=== PATIENT | female | born 1945 | race Caucasian/White ===

== ENCOUNTER 2020-04-22 13:38 | Inpatient (IN) | payer MEDICARE, OTHER ==
[~2020-04-22] VITALS: Ht 160 cm; Wt 61.2 kg
--- NOTE | 2020-04-22 14:28 | PHYS DOC ---
General Adult EDM: Chief Complaint: FEVER HPI: HPI: History obtained from patient. Patient is a 74-year-old female with history of multiple sclerosis who presents with a chief complaint of nausea, fever, general fatigue. Patient states she is not felt well beginning this morning. Patient states has a history of MS but does not take chronic steroids. He notes a few episodes of nonbloody nonbilious emesis. she states home health does check on her daily. She states that she does not ambulate at baseline. She states she has little to no movement in her legs but does have upper extremity movement. Denies any ulcerative wounds. Does note some mild diffuse abdominal discomfort. Denies chest pain or shortness of breath. Unsure when she last took Tylenol. History is somewhat limited patient secondary to the patient's confusion. Review of Systems: Review of Systems: Constitutional: Positive for fevers Eyes: Denies change in visual acuity HENT: Denies nasal congestion or sore throat Respiratory: Denies cough or shortness of breath Cardiovascular: Denies chest pain or edema GI: Positive for vomiting : Denies dysuria Musculoskeletal: Denies back pain or joint pain Integument: Denies rash Neurologic: Denies headache, focal weakness or sensory changes Endocrine: Denies polyuria or polydipsia Lymphatic: Denies swollen glands Psychiatric: Denies depression or anxiety Heart Score: Risk Factors: Risk Factors: DM, Current or recent (<one month) smoker, HTN, HLP, family history of CAD, obesity. Risk Scores: Score 0 - 3: 2.5% MACE over next 6 weeks - Discharge Home Score 4 - 6: 20.3% MACE over next 6 weeks - Admit for Clinical Observation Score 7 - 10: 72.7% MACE over next 6 weeks - Early Invasive Strategies Allergies: Allergies: Allergies Coded Allergies Type Severity Reaction Last Updated Verified No Known Drug Allergies 04/22/20 No Physical Exam: PE: Constitutional: Well developed, well nourished, no acute distress, non-toxic a ppearance. [] HENT: Normocephalic, atraumatic, bilateral external ears normal, oropharynx moist, no oral exudates, nose normal. [] Eyes: PERRLA, EOMI, conjunctiva normal, no discharge. [] Neck: Normal range of motion, no tenderness, supple, no stridor. [] Cardiovascular: Tachycardic, rhythm, no murmur [] Lungs & Thorax: Bilateral breath sounds clear to auscultation [] Abdomen: soft, no tenderness, no masses, no pulsatile masses. [] Skin: Warm, dry, no erythema, no rash. [] Back: No tenderness, no CVA tenderness. No sacral decubitus ulcers visualized. [] Extremities: +2-5 muscle strength in lower extremities bilaterally. +4-5 muscle strength in the upper extremities bilaterally. Neurologic: Alert and oriented X 3, normal motor function, normal sensory function, no focal deficits noted. [] Psychologic: Affect normal, judgement normal, mood normal. [] Current Patient Data: Labs: Laboratory Tests Test 04/22/20 14:00 White Blood Count 9.1 x10^3/uL Red Blood Count 4.56 x10^6/uL Hemoglobin 13.2 g/dL Hematocrit 40.6 % Mean Corpuscular Volume 89 fL Mean Corpuscular Hemoglobin 29 pg Mean Corpuscular Hemoglobin Concent 33 g/dL Red Cell Distribution Width 15.9 % Platelet Count 190 x10^3/uL Neutrophils (%) (Auto) 94 % Lymphocytes (%) (Auto) 2 % Monocytes (%) (Auto) 3 % Eosinophils (%) (Auto) 0 % Basophils (%) (Auto) 0 % Neutrophils # (Auto) 8.6 x10^3uL Lymphocytes # (Auto) 0.2 x10^3/uL Monocytes # (Auto) 0.3 x10^3/uL Eosinophils # (Auto) 0.0 x10^3/uL Basophils # (Auto) 0.0 x10^3/uL Urine Collection Type U cath Urine Color Yellow Urine Clarity Hazy Urine pH 6.0 Urine Specific [place] 1.020 Urine Protein Trace Urine Glucose (UA) Neg mg/dL Urine Ketones (Stick) Neg mg/dL Urine Blood Mod Urine Nitrite Pos Urine Bilirubin Neg Urine Urobilinogen Dipstick 0.2 mg/dL Urine Leukocyte Esterase Small Urine RBC 3-5 /HPF Urine WBC 11-20 /HPF Urine Squamous Epithelial Cells Few /LPF Urine Bacteria Many /HPF Sodium Level 138 mmol/L Potassium Level 3.8 mmol/L Chloride Level 102 mmol/L Carbon Dioxide Level 24 mmol/L Anion Gap 12 Blood Urea Nitrogen 24 mg/dL Creatinine 1.0 mg/dL Estimated GFR (Cockcroft-Gault) 54.5 BUN/Creatinine Ratio 24 Glucose Level 173 mg/dL Lactic Acid Level 2.9 mmol/L Calcium Level 9.6 mg/dL Magnesium Level 1.8 mg/dL Total Bilirubin 0.9 mg/dL Aspartate Amino Transf (AST/SGOT) 19 U/L Alanine Aminotransferase (ALT/SGPT) 23 U/L Alkaline Phosphatase 100 U/L Creatine Kinase 59 U/L Troponin I Quantitative < 0.017 ng/mL Total Protein 6.8 g/dL Albumin 3.1 g/dL Albumin/Globulin Ratio 0.8 Lipase 42 U/L Current Medications Medications (Trade) Dose Ordered Sig/Lexie Route PRN Reason Start Time Stop Time Status Last Admin Dose Admin Ceftriaxone Sodium 1 gm/ Sodium Chloride 50 ml @ 100 mls/hr 1X ONCE IV 04/22/20 15:30 04/22/20 15:59 UNV EKG: EKG: [] EKG consistent with sinus tachycardia. Ventricular rate 106 bpm. QTC noted to be 501. [place] normal. Radiology/Procedures: Radiology/Procedures: [place] [address] IMAGING REPORT Signed PATIENT: MILTON SAMUEL ACCOUNT: [id number] : 1945 LOCATION: ER AGE: 74 SEX: F EXAM STATUS: PRE ER ORD. PHYSICIAN: DULCE FORTUNE DO REASON: confusion PROCEDURE: CT HEAD WO CONTRAST CT HEAD WO CONTRAST History: Reason: confusion / Spl. Instructions: / History: Comparison: September 23, 2019 Technique: Noncontrast CT imaging was performed of the head. Exposure: One or more of the following individualized dose reduction techniques were utilized for this examination: 1. Automated exposure control 2. Adjustment of the mA and/or kV according to patient size 3. Use of iterative reconstruction technique. Findings: No intracranial hemorrhage. No mass effect. No hydrocephalus. Mild brain parenchymal volume loss. Moderate foci of decreased attenuation within the hemispheric white matter, most often due to chronic microvascular ischemia, unchanged. Imaged orbits are unremarkable. Imaged paranasal sinuses and mastoid air cells are clear. No acute calvarial fracture. Impression: 1. No acute intracranial abnormality. 2. Moderate sequelae of chronic microvascular ischemia, unchanged. Electronically signed by: Renan Bonner DO (04/22/2020 2:25 PM) [id number] DICTATED AND SIGNED BY: RENAN BONNER DO DATE: 04/22/20 1425 CC: PCPCHLOE; DULCE FORTUNE DO ~ [place] [address] IMAGING REPORT Signed PATIENT: MILTON SAMUEL ACCOUNT: [id number] : 1945 LOCATION: ER AGE: 74 SEX: F EXAM STATUS: PRE ER ORD. PHYSICIAN: DULCE FORTUNE DO REASON: fever, weakness PROCEDURE: CHEST AP ONLY CHEST AP ONLY 04/22/2020 2:21 PM INDICATION: Fever, weakness COMPARISON: None available TECHNIQUE: Portable frontal view of the chest is provided. FINDINGS: The cardiomediastinal silhouette is within normal limits. There is elevation the right hemidiaphragm. Lungs are clear. There are no significant pleural effusions. There is no pulmonary vascular congestion. No pneumothorax. No suspicious osseous abnormality. Spinal augmentation changes are identified in the lower lumbar spine. IMPRESSION: There is no acute cardiopulmonary process. Likely chronic elevation the right hemidiaphragm. Electronically signed by: Garima Zavala MD (04/22/2020 2:46 PM) [facility] DICTATED AND SIGNED BY: GARIMA ZAVALA MD DATE: 04/22/20 1446 CC: PCPCHLOE; DULCE FORTUNE DO ~ [] Course & Med Decision Making: Course & Med Decision Making Pertinent Labs and Imaging studies reviewed. (See chart for details) [] Patient is a 74-year-old female who presents with a chief complaint of fever and general fatigue. She does have a history of multiple sclerosis. Initial vital signs notable for febrile. Mild tachycardia. Patient does have confusion on history. She is only oriented to person and place. Unclear what her baseline is. No focal neurologic deficits appreciated. No sacral decubitus ulcers noted. Patient's urine is consistent with infection. I do feel this is likely secondary to her multiple sclerosis and likely urinary retention at baseline. No previous cultures could be found therefore Rocephin was administered. IV fluids were also administered. COVID swab obtained and pending. Patient will require hospitalization for further antibiotics. She has remained hemodynamically stable while in the emergency department. Dragon Disclaimer: Sakshi Disclaimer: This electronic medical record was generated, in whole or in part, using a voice recognition dictation system. Departure Departure: Impression: Primary Impression: UTI (urinary tract infection) Qualified Codes: N39.0 - Urinary tract infection, site not specified Additional Impressions: Lactic acidemia Multiple sclerosis Disposition: 09 ADMITTED INPT THIS HOSP Condition: STABLE Referrals: PCP,CHLOE (PCP) DULCE FORTUNE DO Apr 22, 2020 14:28
[2020-04-22 14:33] LABS: BASO % 0 % (0-3); EOS % 0 % (0-3); HEMATOCRIT 40.6 % (36.0-47.0); HEMOGLOBIN 13.2 g/dL (12.0-15.5); LYMPH # 0.2 x10^3/uL (1.0-4.8); LYMPH % 2 % (24-48); MEAN CORPUSCULAR HEMOGLOBIN 29 pg (25-35); MEAN CORPUSCULAR HGB CONC 33 g/dL (31-37); MEAN CORPUSCULAR VOLUME 89 fL (79-100); MONO # 0.3 x10^3/uL (0.0-1.1); MONO % 3 % (0-9); NEUT # 8.6 x10^3uL (1.8-7.7); NEUT % 94 % (31-73); PLATELET COUNT 190 x10^3/uL (140-400); RED BLOOD COUNT 4.56 x10^6/uL (3.50-5.40); RED CELL DISTRIBUTION WIDTH 15.9 % (11.5-14.5); WHITE BLOOD COUNT 9.1 x10^3/uL (4.0-11.0)
[2020-04-22 14:45] LABS: CALCIUM 9.6 mg/dL (8.5-10.1); GFR 54.5; POTASSIUM 3.8 mmol/L (3.5-5.1)
[2020-04-22 14:49] LABS: BACTERIA,URINE MANY /HPF (0-FEW); BILIRUBIN,URINE NEG (NEG); CLARITY,URINE HAZY; COLOR,URINE YELLOW; GLUCOSE,URINE NEG (NEG); NITRITE,URINE POS (NEG); SQUAMOUS EPITHELIAL CELL,UR FEW /LPF; UROBILINOGEN,URINE 0.2 mg/dL (0.2 mg/dL)
--- NOTE | 2020-04-22 14:49 | RAD ---
CHEST AP ONLY 04/22/2020 2:21 PM INDICATION: Fever, weakness COMPARISON: None available TECHNIQUE: Portable frontal view of the chest is provided. FINDINGS: The cardiomediastinal silhouette is within normal limits. There is elevation the right hemidiaphragm. Lungs are clear. There are no significant pleural effusions. There is no pulmonary vascular congestion. No pneumothorax. No suspicious osseous abnormality. Spinal augmentation changes are identified in the lower lumbar spine. IMPRESSION: There is no acute cardiopulmonary process. Likely chronic elevation the right hemidiaphragm. Electronically signed by: Karen Lanier MD (04/22/2020 2:46 PM) [facility]
[2020-04-22 14:52] LABS: ALBUMIN 3.1 g/dL (3.4-5.0); ALBUMIN/GLOBULIN RATIO 0.8 (1.0-1.7); MAGNESIUM 1.8 mg/dL (1.8-2.4); TOTAL BILIRUBIN 0.9 mg/dL (0.2-1.0); TOTAL PROTEIN 6.8 g/dL (6.4-8.2)
[2020-04-22] MEDS ORDERED: ONDANSETRON PF 4 MG/2 ML VIAL. IVP PRN (15:30)
[2020-04-22] MEDS ORDERED: IV NORMAL SALINE 1,000ML 1,000 ML IV ONE (15:30)
[2020-04-22] MEDS ORDERED: cefTRIAXone SODIUM 1 GM VIAL ONE (15:52)
[2020-04-22] MEDS ORDERED: IV NORMAL SALINE 50ML 50 ML ONE (15:52)
--- NOTE | 2020-04-22 17:40 | NUR ---
PATIENT ARRIVED TO UNIT VIA EMS. PATIENT IS IN [place] PRECAUTIONS FOR POSSIBLE COVID 19. PATIENTS VS OBTAINED AND ARE STABLE. PATIEINT IS ORIENTED TO ROOM AND PROCEDURES. PATIENT IS OFFERED FOOD AND DRINK. PATIENT IS RESTING IN ROOM AT THIS TIME. WILL CONTINUE TO MONITOR.
--- NOTE | 2020-04-22 19:33 | HP ---
ADMIT DATE: 04/22/2020 HISTORY OF PRESENT ILLNESS: The patient is a 74-year-old female patient with a longstanding history of multiple sclerosis and functional paraplegia who came to the Emergency Room with chief complaint of nausea, fever, generalized fatigue. All these symptoms started early this morning. She stated that she has a history of multiple sclerosis, does not take any chronic steroids. She notes that she has episodes of nonbloody, nonbilious emesis and stated that she has stayed home health, does check on her daily. She does not ambulate at baseline. She has little or no movement in her legs, but does have upper extremity movement. Denied any open wounds. Does note that she has mild diffuse abdominal discomfort. Denied any chest pain or shortness of breath. She was basically extensively investigated in the Emergency Room. Has had lab work, which showed that her urine was yellow, hazy and was positive for nitrite and leukocyte esterase. There are 3-5 rbc's and 11-20 wbc's, and many bacteria. Her chemistry showed that she has mild lactic acidosis with a serum lactic acid 2.9, also slightly dehydrated and therefore, the patient was admitted with diagnosis of urinary tract infection. She also was admitted for possible COVID infection, multiple sclerosis and lactic acidosis. PAST MEDICAL HISTORY: Significant for longstanding multiple sclerosis for more than 25 years with functional paraplegia and neurogenic bladder. She is known to have hypertension, hypothyroidism, osteoporosis and osteoarthritis. She has multiple thoracolumbar vertebral compression fracture. PAST SURGICAL HISTORY: Significant for vertebroplasty x 2. ALLERGIES: She has no known drug allergies. FAMILY HISTORY: She has one sister who is morbidly obese, treated with gastric bypass surgery. One brother younger and has diabetes. Her father at age of 74 because of myocardial infarction and complication of diabetes. Her mother at age of 86 because of Alexx's granulomatosis. SOCIAL HISTORY: She is , has 2 daughters. She never smoked, does not drink alcohol or use any recreational drugs. She worked at [employer] for almost 38 years. MEDICATIONS: She is currently on following medications: She is on verapamil 240 mg daily, fish oil 1000 mg once a day, lisinopril 20 mg once a day, vitamin D 5000 International Units once a day, raloxifene 60 mg daily, prednisone 10 mg once a day, lidocaine 1 patch topically to her back. She also has Lovenox 40 mg subcutaneous daily, levothyroxine 50 mcg daily. She has lactobacillus rhamnosus 1 capsule twice a day, Celebrex 200 mg twice a day, oxybutynin chloride 5 mg twice a day, cephalexin 500 mg every 8 hours, calcium carbonate 500 mg after meals, lorazepam 0.5 mg every 6 hours, tramadol 100 mg every 6 hours, sodium chloride with saline mist one spray to each nostril hourly, cetirizine 10 mg once a day. REVIEW OF SYSTEMS: As per history of present illness. PHYSICAL EXAMINATION: GENERAL: When I examined her this afternoon, there was no pallor, jaundice, cyanosis or thyromegaly. No jugular venous distention. No limb edema. VITAL SIGNS: Her heart rate was 117, blood pressure was 163/92, temperature was 100, respiratory rate was 28 and oxygen saturation was 90% on room air. HEAD, EYES, EARS, NOSE AND THROAT: Normocephalic, atraumatic. NECK: Supple. HEART: Showed normal first and second heart sounds. No gallop, rub or murmur. CHEST: Clear to auscultation. No crepitation or rhonchi. ABDOMEN: Distended, soft, nontender. There is no guarding or rigidity. No organomegaly. All hernial orifices intact. Bowel sounds normal. NEUROLOGIC: She was awake, alert, responding appropriately. All cranial nerves intact. She moves upper extremities without difficulty. She has paraplegia with neurogenic bladder CT scan of the head showed no acute intracranial abnormality. She has moderate sequelae of chronic microvascular ischemia, this has unchanged. ASSESSMENT AND PLAN: The patient was treated with IV fluid. She received 2 liters of normal saline and 1 gram of IV ceftriaxone and was admitted for further evaluation and treatment and was kept on droplet precaution. She was swabbed for COVID-19. THERON SEGOVIA MD DR: POLY/juany JOB#: [id number] / [id number]
[2020-04-22] MEDS ORDERED: LEVO50TA5 PO (20:09)
[2020-04-22] MEDS ORDERED: TRAM50TA PO (20:09)
[2020-04-22] MEDS ORDERED: VERA240C2 PO (20:09)
[2020-04-22] MEDS ORDERED: LISI40TA PO (20:09)
[2020-04-22] MEDS ORDERED: CELE200C PO (20:09)
[2020-04-22] MEDS ORDERED: BACL20TA PO (20:09)
[2020-04-22 21:35] VITALS: BP 111/71
[2020-04-22] MEDS: BACLOFEN 20 MG TABLET PO SCH (21:35)
[2020-04-22] MEDS: VERAPAMIL SR 120 MG TABLET.ER. PO SCH (21:36)
[2020-04-22 23:25] VITALS: BP 111/71
[2020-04-22] MEDS: ACETAMINOPHEN 325 MG TABLET PO PRN (23:32)
[2020-04-23] MEDS: LEVOTHYROXINE 50 MCG TABLET PO SCH (06:05)
[2020-04-23 06:57] LABS: HEMOGLOBIN 12.4 g/dL (12.0-15.5); RED BLOOD COUNT 4.31 x10^6/uL (3.50-5.40); RED CELL DISTRIBUTION WIDTH 16.1 % (11.5-14.5); WHITE BLOOD COUNT 7.5 x10^3/uL (4.0-11.0)
[2020-04-23 07:00] VITALS: BP 123/68
[2020-04-23 07:14] LABS: ALBUMIN 2.8 g/dL (3.4-5.0); ALBUMIN/GLOBULIN RATIO 0.8 (1.0-1.7); CALCIUM 9.3 mg/dL (8.5-10.1); CREATININE 0.7 mg/dL (0.6-1.0); GFR 82.3; POTASSIUM 3.8 mmol/L (3.5-5.1); TOTAL BILIRUBIN 0.4 mg/dL (0.2-1.0); TOTAL PROTEIN 6.3 g/dL (6.4-8.2)
[2020-04-23] MEDS: BACLOFEN 20 MG TABLET PO SCH ×4 (08:07→20:32)
[2020-04-23] MEDS: VERAPAMIL SR 120 MG TABLET.ER. PO SCH ×2 (08:07→20:33)
[2020-04-23] MEDS: CELECOXIB 100 MG CAPSULE PO SCH (08:07)
[2020-04-23] MEDS: LISINOPRIL 20 MG TABLET PO SCH (08:08)
[2020-04-23 11:09] VITALS: BP 118/63
[2020-04-23 16:02] VITALS: BP 137/68
[2020-04-23] MEDS: ACETAMINOPHEN 325 MG TABLET PO PRN (16:06)
--- NOTE | 2020-04-23 18:38 | NUR ---
PATIENT COVID CAME BACK NEGATIVE. PATIENT HAD ONE INCONTINENCE WITH NO BOWEL MOVEMENT TODAY. PATIENT RECEIVED ANOTHER DOSE OF ROCEPHIN OF ABX. PATIENT HAD A LOW GRADE FEVER WITH A 99.8. TEMPERATURE WAS TAKEN AGAIN AND IT WAS 98.8 AFTER TYLENOL WAS GIVEN FOR HEADACHE. PATIENT IS PLEASANTLY LAYING IN BED WITH FRESH WATER.
[2020-04-23 20:13] VITALS: BP 118/69
[2020-04-23 23:38] VITALS: BP 129/87
[2020-04-24 03:07] VITALS: BP 106/59
[2020-04-24] MEDS: LEVOTHYROXINE 50 MCG TABLET PO SCH (04:39)
[2020-04-24 05:42] VITALS: BP 111/60
--- NOTE | 2020-04-24 06:13 | PN ---
DATE: 04/23/2020 SUBJECTIVE: The patient is resting, slightly propped up in bed, in no apparent distress. She is awake, alert. On questioning her, she stated that she has generally feeling much improved. Her blood cultures showed no growth after one day. PHYSICAL EXAMINATION: GENERAL: When I examined her, she looked well with no pallor, jaundice, cyanosis or thyromegaly. No jugular venous distention. No limb edema. VITAL SIGNS: Her heart rate was 77, blood pressure was 137/68, temperature was 99.8, respiratory rate was 16, and oxygen saturation was 94% on room air. HEAD, EYES, EARS, NOSE AND THROAT: Showed normocephalic, atraumatic. NECK: Supple. HEART: Showed normal first and second heart sounds. No gallop or murmur. CHEST: Showed central trachea, equal bilateral expansion, air entry, vesicular sounds. No crepitation or rhonchi. ABDOMEN: Distended, soft, nontender. NEUROLOGIC: She was awake, alert, responding appropriately. All cranial nerves are intact. She moves extremities without difficulty. She has longstanding multiple sclerosis with functional paraplegia, neurogenic bladder and bowel. Her intake and output are incompletely recorded. LABORATORY DATA: Her lab work this morning showed a white cell count 7500, hemoglobin 12, hematocrit 38, MCV 88 and platelet count of 169,000. Serum sodium was 138, potassium 3.8, chloride 106, bicarbonate 23, anion gap of 9, BUN 22, creatinine 0.7, estimated GFR was 82 mL per minute. Her glucose was 121, calcium was 9.3. Total bilirubin and alkaline phosphatase is normal. AST, ALT are elevated. Total protein was 6.3, albumin was 2.8. Urinalysis showed the urine was yellow, hazy with a pH of 6. The urine was positive for nitrite and leukocyte esterase. There were 11-20 wbc's and too many bacteria. ASSESSMENT: The patient was admitted with sepsis and lactic acidosis, treated with IV fluid. She has also evidence of urinary tract infection for which she was started on IV ceftriaxone. She was kept on droplet precaution. However, her COVID-19 was negative. PLAN: To continue with the IV ceftriaxone, continue other medication. Await the result of the urine, blood culture and sensitivity and possibly discharge home tomorrow. THERON SEGOVIA MD DR: Viv JOB#: [id number] / [id number]
[2020-04-24 06:53] LABS: HEMATOCRIT 37.8 % (36.0-47.0); HEMOGLOBIN 12.4 g/dL (12.0-15.5); RED BLOOD COUNT 4.27 x10^6/uL (3.50-5.40); RED CELL DISTRIBUTION WIDTH 16.3 % (11.5-14.5); WHITE BLOOD COUNT 5.2 x10^3/uL (4.0-11.0)
[2020-04-24 06:56] LABS: CALCIUM 9.2 mg/dL (8.5-10.1); CREATININE 0.7 mg/dL (0.6-1.0); GFR 82.3; POTASSIUM 3.8 mmol/L (3.5-5.1)
[2020-04-24] MEDS: BACLOFEN 20 MG TABLET PO SCH ×4 (08:17→20:18)
[2020-04-24] MEDS: CELECOXIB 100 MG CAPSULE PO SCH (08:17)
[2020-04-24] MEDS: LISINOPRIL 20 MG TABLET PO SCH (08:18)
[2020-04-24] MEDS: VERAPAMIL SR 120 MG TABLET.ER. PO SCH ×2 (08:18→20:19)
--- NOTE | 2020-04-24 08:48 | NUR ---
Lab called. Stated pt has positive blood cultures. Gram positive cocci in pairs/chains suggestive of strep. In one out of two bottles. [address] Hayes paged.
--- NOTE | 2020-04-24 09:41 | NUR ---
Dr Hayes returned call. Continue on current ABT treatment.
--- NOTE | 2020-04-24 10:00 | NUR ---
Pt c/o BLL pain. Legs repositioned on pillow. Tramadol given per pt request.
[2020-04-24] MEDS: traMADol 50 MG TABLET PO PRN ×2 (10:03→17:39)
[2020-04-24 11:16] VITALS: BP 112/71
[2020-04-24 15:43] VITALS: BP 123/55
--- NOTE | 2020-04-24 18:22 | NUR ---
Pt was incontinent of bladder. Pt requested to sit on bed goff. Had lg BM and voided approx 150 cc. C/O lower back and B leg pain. Tramadol given.
[2020-04-24 20:00] VITALS: BP 126/72
[2020-04-24] MEDS: LIDOCAINE (700MG/PATCH) PATCH. TD SCH (20:20)
--- NOTE | 2020-04-24 20:59 | PN ---
DATE: 04/24/2020 SUBJECTIVE: The patient is resting, slightly propped up in bed, in no apparent respiratory distress. Nursing staff did not voice any concern. Her urine culture showed growth of greater than 100,000 colony forming units per mL of gram-negative rods identified as Escherichia coli. The sensitivity is still pending. Her blood culture showed growth of gram-positive cocci in pairs and chains suggestive of streptococcus in 1 out of 2 bottles. OBJECTIVE: GENERAL: On examining her, she looked well and was clearly in no apparent respiratory distress. No pallor, jaundice, cyanosis or thyromegaly. No jugular venous distention. No limb edema. VITAL SIGNS: Her heart rate was 72, blood pressure was 123/55, temperature 99.3, respiratory rate was 22 and oxygen saturation was 94% on room air. HEENT: Showed normocephalic, atraumatic. NECK: Supple. HEART: Showed normal first and second heart sounds. No gallop or murmur. CHEST: Clear to auscultation. No crepitation or rhonchi. ABDOMEN: Distended, soft, nontender. NEUROLOGIC: She is awake, alert, responding appropriately. All cranial nerves are intact. She moves upper extremities without difficulty. She has longstanding multiple sclerosis with paraplegia and neurogenic bladder and bowel. Her intake and output are incompletely recorded. LABORATORY DATA: Her lab work this morning showed a white cell count 5200, hemoglobin 12.4, hematocrit 37.8, MCV 89 and platelet count of 165,000. Her chemistry showed a serum sodium 139, potassium 3.8, chloride 106, bicarbonate 23, anion gap of 10, BUN 20, creatinine 0.7, estimated GFR was 82 mL per minute. Her glucose 117, calcium was 9.2. ASSESSMENT: 1. Sepsis with lactic acidosis. 2. Due to urinary tract infection with growth of more than 100,000 colony forming unit per mL, she also has gram-positive cocci from her blood culture, likely contaminant. Other medical problems include longstanding type multiple sclerosis with functional paraplegia, neurogenic bladder, hypertension, hypothyroidism, osteoporosis and osteoarthritis. She has multiple thoracolumbar vertebral compression fracture. PLAN: My plan is to continue with IV antibiotic. Once we have the identification and sensitivity, we will discharge her home to continue on appropriate antibiotic. THERON SEGOVIA MD DR: Viv JOB#: [id number] / [id number]
[2020-04-25 03:25] VITALS: BP 105/60
[2020-04-25] MEDS: LEVOTHYROXINE 50 MCG TABLET PO SCH (06:35)
[2020-04-25 07:34] VITALS: BP 114/59
--- NOTE | 2020-04-25 07:48 | NUR ---
Pt awake and up in bed. Requested fan turned off. Pt in pleasant spirits. No complaints.
[2020-04-25] MEDS: BACLOFEN 20 MG TABLET PO SCH ×4 (08:20→19:49)
[2020-04-25] MEDS: CELECOXIB 100 MG CAPSULE PO SCH (08:20)
[2020-04-25] MEDS: VERAPAMIL SR 120 MG TABLET.ER. PO SCH (08:21)
[2020-04-25] MEDS: PATCH REMOVAL. MC SCH (08:21)
[2020-04-25] MEDS: LISINOPRIL 20 MG TABLET PO SCH (08:22)
[2020-04-25 12:31] VITALS: BP 137/74
[2020-04-25 16:00] VITALS: BP 140/78
--- NOTE | 2020-04-25 16:41 | NUR ---
Pt has been in pleasant spirits. Feels well. Has med BM on bedpan. AF. No c/o.
--- NOTE | 2020-04-25 19:33 | PN ---
DATE: 04/25/2020 SUBJECTIVE: The patient is resting, slightly propped up in bed, in no apparent distress. She was bradycardic and nauseous this morning. It transpired that she was in a double dose of her verapamil, so we discontinued that. We held her lisinopril this morning. PHYSICAL EXAMINATION: GENERAL: When I saw her, she looked well and was clearly in no apparent respiratory distress. No pallor, jaundice, cyanosis or thyromegaly. No jugular venous distention. No lower limb edema. VITAL SIGNS: Her heart rate was 63, blood pressure was 137/74, temperature was 98.4, respiratory rate was 23, and oxygen saturation was 92%. HEAD, EYES, EARS, NOSE AND THROAT: Showed normocephalic, atraumatic. NECK: Supple. HEART: Showed normal first and second heart sounds. No gallop, rub or murmur. CHEST: Clear to auscultation. No crepitation or rhonchi. ABDOMEN: Distended, soft, nontender. NEUROLOGIC: She was awake, alert, responding appropriately. All cranial nerves are intact. She moves extremities without difficulty. She has functional paraplegia with neurogenic bladder and bowel due to progressive multiple sclerosis. Her intake was 300 and no output was recorded. LABORATORY DATA: Her most recent white cell count was 5200, hemoglobin 12, hematocrit 37, MCV 89 and platelet count 265,000. Her chemistry showed a serum sodium 139, potassium 3.8, chloride 106, bicarbonate 23, anion gap of 10, BUN 20, creatinine 0.7, estimated GFR was 82 mL per minute. Her glucose 117 and calcium was 8.2. ASSESSMENT: 1. Sepsis with lactic acidosis. 2. Urinary tract infection with growth of more than 100,000 colony forming units/mL. She also has gram-positive cocci from her blood culture, likely contaminant. 3. Other medical problems include: A. Longstanding multiple sclerosis with functional paraplegia and neurogenic bladder and bowel. B. Hypertension. C. Hypothyroidism. D. Osteoporosis and osteoarthritis. E. Multiple thoracolumbar vertebral compression fracture. PLAN: To continue with IV antibiotic. Await sensitivity tomorrow and she can probably be discharged home. THERON SEGOVIA MD DR: POLY/juany JOB#: [id number] / [id number]
[2020-04-25] MEDS: LACTOBACILLUS RHAMNOSUS GG 1 CAPSULE. PO SCH (19:49)
[2020-04-25] MEDS: LIDOCAINE (700MG/PATCH) PATCH. TD SCH (19:49)
[2020-04-25 19:56] VITALS: BP 136/62
[2020-04-26 05:00] VITALS: BP 158/78
[2020-04-26] MEDS: LEVOTHYROXINE 50 MCG TABLET PO SCH (05:13)
[2020-04-26] MEDS: CELECOXIB 100 MG CAPSULE PO SCH (08:07)
[2020-04-26] MEDS: LISINOPRIL 20 MG TABLET PO SCH (08:08)
[2020-04-26] MEDS: LACTOBACILLUS RHAMNOSUS GG 1 CAPSULE. PO SCH ×2 (08:08→20:26)
[2020-04-26] MEDS: BACLOFEN 20 MG TABLET PO SCH ×4 (08:08→20:26)
[2020-04-26] MEDS: VERAPAMIL SR 120 MG TABLET.ER. PO SCH (08:09)
[2020-04-26 08:14] VITALS: BP 172/77
[2020-04-26] MEDS: PATCH REMOVAL. MC SCH (09:00)
[2020-04-26 11:18] VITALS: BP 146/83
[2020-04-26 15:03] VITALS: BP 159/78
--- NOTE | 2020-04-26 15:48 | PN ---
DATE: 04/26/2020 SUBJECTIVE: The patient is resting, slightly propped up in bed, in no apparent respiratory distress. On questioning her, denied any complaint and nursing staff did not voice any concern said that she has an uneventful night. PHYSICAL EXAMINATION: GENERAL: When I examined her, she looked well and was clearly in no apparent respiratory distress. No pallor, jaundice, cyanosis or thyromegaly. No jugular venous distention. No limb edema. VITAL SIGNS: Her heart rate was 88, blood pressure was 146/83, temperature was 98.9, respiratory rate was 20, and oxygen saturation was 96% on room air. HEENT: Showed normocephalic, atraumatic. NECK: Supple. HEART: Showed normal first and second heart sounds. No gallop, rub or murmur. CHEST: Clear to auscultation. No crepitation or rhonchi. ABDOMEN: Distended, soft, nontender. NEUROLOGIC: She is awake, alert, responding appropriately. All cranial nerves intact. She moves extremities without difficulty. She has longstanding multiple sclerosis with functional paraplegia and neurogenic bowel and bladder. Her intake over the last 24 hours was 480, no output was recorded. LABORATORY DATA: Showed white cell count 5200, hemoglobin 12, hematocrit 37, MCV 89 and platelet count of 165,000. Serum sodium 139, potassium 3.8, chloride 106, bicarbonate 23, anion gap of 10, BUN 20, creatinine 0.7, estimated GFR was 82 mL per minute. Her glucose 117, calcium was 9.2. Total bilirubin and alkaline phosphatase is normal. AST, ALT are elevated. Total protein 6.3, albumin was 2.8. Urinalysis showed 11-20 wbc's, and many bacteria. Her urine culture has grown more than 100,000 colony forming units of gram-negative rods identified as Escherichia coli. Her blood culture has grown gram-positive cocci identified as Enterococcus faecium and unfortunately, the sensitivity is still pending at the time of this dictation. I spoke with the lab at [facility] and apparently the sensitivities will be available tomorrow. ASSESSMENT: 1. Sepsis with lactic acidosis. 2. Urinary tract infection with growth of more than 100,000 colony forming units per mL. She also has gram-positive cocci from blood culture, found to be due to Enterococcus faecium. 3. Other medical problems include: A. Longstanding multiple sclerosis with functional paraplegia, neurogenic bladder and bowel. B. Hypertension. C. Hypothyroidism. D. Osteoporosis and osteoarthritis. E. Multiple thoracolumbar vertebral compression fracture. PLAN: To continue with IV antibiotic. Hopefully, we will have the sensitivity tomorrow and she can be discharged home. THERON SEGOVIA MD DR: POLY/juany JOB#: [id number] / [id number]
[2020-04-26] MEDS: CETIRIZINE HCL 10 MG TABLET PO SCH (15:49)
[2020-04-26] MEDS: traMADol 50 MG TABLET PO PRN (15:53)
--- NOTE | 2020-04-26 17:02 | NUR ---
PATIENT WAS CALM AND COOPERATIVE UPON ASSESSMENT THIS AM, IN A GOOD SPIRIT WITH A HOPE TO BE GOING SOON. PATIENT REQUESTED TO USE A BED ARANA AND HAD A SHOWER LATER AFTER BREAKFAST. PATIENT STATED HER NOSE IS RUNNING POSSIBLY DUE TO SEASONAL ALLERGY AND REQUESTED MEDICATION . ORDER OF ZYRTEC OBTAINED FROM . TRAMADOL GIVEN FOR PAIN PER PATIENT REQUEST.
[2020-04-26 19:20] VITALS: BP 131/71
[2020-04-26] MEDS: LIDOCAINE (700MG/PATCH) PATCH. TD SCH (20:26)
[2020-04-27] MEDS: LEVOTHYROXINE 50 MCG TABLET PO SCH (05:58)
[2020-04-27 06:20] LABS: HEMATOCRIT 37.4 % (36.0-47.0); HEMOGLOBIN 12.4 g/dL (12.0-15.5); RED BLOOD COUNT 4.31 x10^6/uL (3.50-5.40); RED CELL DISTRIBUTION WIDTH 16.2 % (11.5-14.5); WHITE BLOOD COUNT 6.7 x10^3/uL (4.0-11.0)
[2020-04-27 06:35] LABS: ALBUMIN 2.6 g/dL (3.4-5.0); ALBUMIN/GLOBULIN RATIO 0.7 (1.0-1.7); CALCIUM 9.2 mg/dL (8.5-10.1); CREATININE 0.5 mg/dL (0.6-1.0); GFR 121.3; POTASSIUM 3.9 mmol/L (3.5-5.1); TOTAL BILIRUBIN 0.2 mg/dL (0.2-1.0); TOTAL PROTEIN 6.4 g/dL (6.4-8.2)
[2020-04-27 07:15] VITALS: BP 151/76
[2020-04-27] MEDS: BACLOFEN 20 MG TABLET PO SCH ×3 (07:28→16:47)
[2020-04-27] MEDS: LISINOPRIL 20 MG TABLET PO SCH (07:28)
[2020-04-27] MEDS: ACETAMINOPHEN 325 MG TABLET PO PRN (07:28)
[2020-04-27] MEDS: LACTOBACILLUS RHAMNOSUS GG 1 CAPSULE. PO SCH (07:28)
[2020-04-27] MEDS: CETIRIZINE HCL 10 MG TABLET PO SCH (07:29)
[2020-04-27] MEDS: VERAPAMIL SR 120 MG TABLET.ER. PO SCH (07:29)
[2020-04-27] MEDS: CELECOXIB 100 MG CAPSULE PO SCH (07:29)
[2020-04-27] MEDS: PATCH REMOVAL. MC SCH (07:32)
[2020-04-27 12:00] VITALS: BP 133/81
[2020-04-27] MEDS ORDERED: AMOX500C PO (14:38)
[2020-04-27] MEDS ORDERED: LINE600T12 PO (14:40)
[2020-04-27] MEDS ORDERED: VERA240C2 PO (14:49)
--- NOTE | 2020-04-27 15:00 | DS ---
DATE OF DISCHARGE: HOSPITAL COURSE: The patient is a 74-year-old female patient, who was originally admitted with recurrent bouts of nausea and vomiting. She does not ambulate at baseline and was basically diagnosed with urinary tract infection and possible COVID infection. She was found to be septic with lactic acidosis, treated with IV fluid and IV antibiotic. Her COVID-19 by PCR was negative and eventually, her urine culture has grown more than 100,000 colony-forming units per mL of gram-negative rods identified as Escherichia coli and her blood culture has grown Enterococcus faecium that is vancomycin-resistant. However, the patient remained hemodynamically stable, afebrile, and decision was made to discharge her home to continue treatment with oral antibiotic. PHYSICAL EXAMINATION: GENERAL: When I examined her, she looked pale, but no jaundice, cyanosis or thyromegaly. No jugular venous distention or limb edema. VITAL SIGNS: His heart rate was 54, blood pressure 151/76, temperature 98.7, respiratory rate was 16, and oxygen saturation was 95%. HEAD, EYES, EARS, NOSE AND THROAT: Showed normocephalic, atraumatic. NECK: Supple. HEART: Showed normal first and second heart sounds. No gallop, rub or murmur. CHEST: Clear to auscultation. No crepitation or rhonchi. ABDOMEN: Distended, soft, nontender. NEUROLOGIC: She is awake, alert, responding appropriately. All cranial nerves are intact. She moves upper extremities without difficulty. She has functional paraplegia with neurogenic bladder and bowel. LABORATORY DATA: As of this morning showed white cell count 6700, hemoglobin 12, hematocrit 37, MCV 87 and platelet count 233,000. Her chemistry showed a serum sodium 141, potassium 3.9, chloride 105, bicarbonate 24, anion gap of 12, BUN 16, creatinine 0.5, estimated GFR was 121 mL per minute. Her glucose was 86, calcium was 9.2. Total bilirubin, AST, ALT, alkaline phosphatase slightly elevated. Total protein 6.4, albumin 2.6. DISCHARGE MEDICATIONS: The patient was discharged home with home health to continue on amoxicillin 500 mg 3 times a day for 7 days, Zyvox 600 mg p.o. b.i.d., baclofen 20 mg 4 times a day, Celebrex 200 mg daily, levothyroxine sodium 50 mcg once a day, lisinopril 40 mg once a day, tramadol 50 mg twice a day, and verapamil 240 mg twice a day. FINAL DISCHARGE DIAGNOSES: 1. Sepsis with lactic acidosis, resolved. 2. Urinary tract infection with growth of more than 100,000 colony-forming units per mL of gram-negative rods identified as Escherichia coli. 3. She has Gram-positive bacteremia identified as vancomycin-resistant Enterococcus faecium. 4. Other medical problems include; A. longstanding multiple sclerosis with functional paraplegia, neurogenic bladder and bowel. B. Hypertension. C. Hypothyroidism. D. Osteoporosis and osteoarthritis. E. Multiple thoracolumbar vertebral compression fractures. THERON SEGOVIA MD DR: POLY/juany JOB#: [id number] / [id number]
--- NOTE | 2020-04-27 18:00 | NUR ---
Pt. left with own wheelchair and personal belongings. Bridgette picked her up and she was grateful for everything and was happy to be going home. Discharge packet and scripts with patient.
== END 2020-04-27 18:00 | disposition home health service (06) | DRG 872 ==
LOC: ER 13:38 → 1 SOUTH 17:30 → ICU 18:11
PROVIDERS: ADMIT Internal Medicine; ATTEND Internal Medicine
DX: A41.81 Sepsis due to Enterococcus (principal); K59.2 Neurogenic bowel, not elsewhere classified; M48.55XA Collapsed vertebra, not elsewhere classified, thoracolumbar region, initial encounter for fracture; N39.0 Urinary tract infection, site not specified; Z16.21 Resistance to vancomycin; B96.20 Unspecified Escherichia coli [E. coli] as the cause of diseases classified elsewhere; E03.9 Hypothyroidism, unspecified; E86.0 Dehydration; F44.4 Conversion disorder with motor symptom or deficit; G35 Multiple sclerosis; I10 Essential (primary) hypertension; M19.90 Unspecified osteoarthritis, unspecified site; M81.0 Age-related osteoporosis without current pathological fracture; N31.9 Neuromuscular dysfunction of bladder, unspecified; Z20.828 Contact with and (suspected) exposure to other viral communicable diseases; Z82.49 Family history of ischemic heart disease and other diseases of the circulatory system; Z83.3 Family history of diabetes mellitus
CPT/HCPCS: 36415; 70450; 71045; 80048; 80053; 81001; 82550; 83605; 83690; 83735; 84484; 85025; 85027; 87040; 87077; 87086; 87186; 87205; 93005; 96365; J0696; P9612; 99285-25; J7030; U0003-CS